=== PATIENT | male | born 1970 | race Caucasian/White ===

== ENCOUNTER 2020-11-16 14:53 | Inpatient (IN) | payer OTHER ==
[~2020-11-16] VITALS: Ht 167.6 cm; Wt 119.7 kg
[2020-11-16] MEDS ORDERED: LOSA50TA37 PO (15:24)
[2020-11-16] MEDS ORDERED: ACETAMINOPHEN 325 MG TABLET PO PRN (16:45)
[2020-11-16] MEDS ORDERED: MAGNESIUM HYDROXIDE SUSPENSION 30 ML UDCUP PO PRN (16:45)
[2020-11-16 18:05] VITALS: BP 144/71
[2020-11-16 19:34] VITALS: BP 116/56
[2020-11-16 23:40] VITALS: BP 114/64
[2020-11-16] MEDS: HEPARIN SODIUM,PORCINE 5,000 UNITS/ML VIAL SQ SCH (23:56)
[2020-11-17 00:21] LABS: COVID AG,FIA SOURCE NASAL SWAB
[2020-11-17 03:45] VITALS: BP 112/65
[2020-11-17 08:00] VITALS: BP 111/66
[2020-11-17] MEDS: HEPARIN SODIUM,PORCINE 5,000 UNITS/ML VIAL SQ SCH (08:48)
[2020-11-17] MEDS ORDERED: FAMOTIDINE 20 MG TABLET PO SCH (09:00)
[2020-11-17 09:22] LABS: CHOL/HDL RATIO 2.9 (4.2-7.3)
[2020-11-17] MEDS ORDERED: ASPIRIN 81 MG CHEWABLE TABLET PO SCH (10:00)
[2020-11-17 11:19] VITALS: BP 118/62
[2020-11-17] MEDS ORDERED: ASPI-1522 PO (14:43)
== END 2020-11-17 14:55 | DRG 313 ==
LOC: EMS 14:53 → 5S 16:42
PROVIDERS: ADMIT Internal Medicine; ATTEND Internal Medicine
DX: R07.89 Other chest pain (principal); Z68.41 Body mass index [BMI] 40.0-44.9, adult; E66.01 Morbid (severe) obesity due to excess calories; I10 Essential (primary) hypertension; M25.569 Pain in unspecified knee; G89.29 Other chronic pain; Z20.822 Contact with and (suspected) exposure to COVID-19; Z90.49 Acquired absence of other specified parts of digestive tract; Z79.899 Other long term (current) drug therapy; Z87.891 Personal history of nicotine dependence
CPT/HCPCS: 87426; 93306; 99285; J1644